=== PATIENT | female | born 1995 | race Caucasian/White ===

== ENCOUNTER 2024-03-22 11:33 | Emergency (ER) | payer OTHER ==
[~2024-03-22] VITALS: Ht 177.8 cm; Wt 106.6 kg
[2024-03-22 11:46] VITALS: BP 162/118
[2024-03-22] MEDS ORDERED: HYDROmorphone HCl/Pf 1MG SYR IM ONE ×2 (13:00→14:25)
[2024-03-22] MEDS ORDERED: Ketorolac Tromethamine 15mg Vial IM ONE (13:00)
[2024-03-22] MEDS ORDERED: OXYACE7.5T PO (14:42)
== END 2024-03-22 14:57 | disposition home or self-care (01) ==
LOC: ER 11:33
DX: M54.50 Low back pain, unspecified (principal); G89.29 Other chronic pain; Q79.60 Ehlers-Danlos syndrome, unspecified; Z88.8 Allergy status to other drugs, medicaments and biological substances
CPT/HCPCS: 72100; 96372; 99283-25; J1171; J1885

== ENCOUNTER 2024-05-02 06:27 | Day surgery (SDC) | payer OTHER ==
[~2024-05-02] VITALS: Ht 177.8 cm; Wt 114.6 kg
[2024-05-02] VITALS (11 sets, daily range): BP systolic 108–160; BP diastolic 77–113
[~2024-05-02 06:27] MED LIST: ALBU90OI INH; CeFAZolin Sodium 2,000 MG in NS 100 ML IV SCH; HYDPAM100 PO; IBUP800 PO; LOTREXONE4.5 MG PO; Lactated Ringer's 1,000 ML IV SCH; MELO7.5 PO; NEXPLANON68 MG SQ; Nortriptyline H50 MG PO; OXYACE7.5T PO; SPIR25 PO
[2024-05-02] MEDS ORDERED: propofoL 20 ML IV ONE ×2 (06:57→07:50)
[2024-05-02] MEDS ORDERED: FentaNYL Citrate 50 MCG/ML 2 ML Injection ONE ×3 (06:57→10:00)
[2024-05-02] MEDS ORDERED: Rocuronium Bromide 10 MG/ML 5ML Injection IV ONE ×2 (06:58→08:28)
[2024-05-02] MEDS ORDERED: Ondansetron HCl 2 MG / ML 2ML Vial ONE ×2 (06:58→10:09)
[2024-05-02] MEDS ORDERED: Dexamethasone Sod Phos 10 MG/ML 1ML VIAL ONE (06:58)
[2024-05-02] MEDS ORDERED: CeFAZolin Sodium 2,000 MG VIAL ONE (07:09)
[2024-05-02] MEDS ORDERED: Midazolam HCl 1MG / ML 2ML Vial IV ONE (07:15)
[2024-05-02] MEDS ORDERED: Lidocaine HCl 4% 5 ML SDA ONE (07:18)
[2024-05-02] MEDS ORDERED: Bupivacaine 0.5% HCl 5 MG/ML 30MLVIAL ONE (07:22)
[2024-05-02] MEDS ORDERED: Albuterol HFA200 ACT/6.7 GM INH INH PRN (07:35)
[2024-05-02] MEDS ORDERED: Sugammadex Sodium 200 MG/2ML SDV (100 MG/ML) ONE (07:59)
--- NOTE | 2024-05-02 09:31 | NUR ---
05/02/24 0931 Stone,[place] [facility] REMOVED END OF CASE, TOLERATED WELL, 250ML URINE
[2024-05-02] MEDS ORDERED: Ondansetron HCl 2 MG / ML 2ML Vial IV PRN (09:55)
[2024-05-02] MEDS ORDERED: OxyCODONE 5 mg/Acetamin 325 mg TABLET PO PRN (09:55)
[2024-05-02] MEDS ORDERED: HydrALAZINE HCl 20 MG / ML 1ML Vial ONE (09:55)
[2024-05-02] MEDS ORDERED: Metoclopramide HCl 5MG / ML 2ML Vial ONE (10:14)
[2024-05-02] MEDS ORDERED: Scopolamine Hydrobromide Patch TOP ONE (10:20)
--- NOTE | 2024-05-02 11:07 | NUR ---
DISCHARGE PT A&OX4/VSS/RA/EYES OPEN/TALKING/FOLLOWS COMMANDS/C&DBS, PAIN MANAGED WITH PERCOCET X1, RONNIE PO H20, ABD EXOFIN X3 CDI, DC INS PROVIDED. PT REP UNDERSTANDING THOSE INSTRUCTIONS. LEFT VIA WC WITH RN TO GO HOME WITH ALL PERSONAL POSSESSIONS, TO GO HOME WITH MARIBELL/PROFESSIONAL ATHLETE/MOM. IV DC'D.
== END 2024-05-02 23:00 | disposition home or self-care (01) ==
LOC: ORSCMMR 06:27 → ORD 11:30 → ORSCMMR 23:00
PROVIDERS: Obstetrics & Gynecology
PROC: 0UT7FZZ Resection of Bilateral Fallopian Tubes, Via Natural or Artificial Opening With Percutaneous Endoscopic Assistance (ICD-10-PCS; principal; 2024-05-02 07:30)
PROC: 8E0W4CZ Robotic Assisted Procedure of Trunk Region, Percutaneous Endoscopic Approach (ICD-10-PCS; principal; 2024-05-02 07:30)
PROC: 0U5F4ZZ Destruction of Cul-de-sac, Percutaneous Endoscopic Approach (ICD-10-PCS; principal; 2024-05-02 07:30)
DX: N92.1 Excessive and frequent menstruation with irregular cycle (principal); N94.6 Dysmenorrhea, unspecified; E28.2 Polycystic ovarian syndrome; Z30.2 Encounter for sterilization; N80.329 Endometriosis of the posterior cul-de-sac, unspecified depth; N80.352 Endometriosis of the left pelvic sidewall, unspecified depth; Q79.60 Ehlers-Danlos syndrome, unspecified; E66.9 Obesity, unspecified; Z68.36 Body mass index [BMI] 36.0-36.9, adult; J45.909 Unspecified asthma, uncomplicated; F43.10 Post-traumatic stress disorder, unspecified; F32.A Depression, unspecified; Z79.899 Other long term (current) drug therapy
CPT/HCPCS: 88302; 88305; A9270; J0360; J0690; J1100; J2003; J2250; J2405; J2704; J2765; J3010; J7120

== ENCOUNTER → 2025-02-15 | Outpatient (CLI) | payer OTHER ==
[~2025-02-15] MED LIST changes: -CeFAZolin Sodium 2,000 MG in NS 100 ML IV SCH; -Lactated Ringer's 1,000 ML IV SCH
[2025-02-15 19:39] LABS: Alanine Aminotransfer (ALT/SGP 18.0 U/L (12-78); Albumin, Blood 4.0 g/dL (3.4-5.0); Albumin/Globulin Ratio 0.9 (0.8-1.8); Anion Gap 5.0 mmol/L (3-11); Aspartate Aminotrans (AST/SGOT 7.0 U/L (12-37); Bilirubin, Total 0.4 mg/dL (0.1-1.0); Blood Urea Nitrogen 8.0 mg/dL (8-24); C-Reactive Protein, High Sens. 6.5 mg/L (0.000-3.000); CO2, Blood 27.0 mmol/L (21-32); Calcium, Blood 9.3 mg/dL (8.5-10.1); Chloride, Blood 107.0 mmol/L (98-108); Creatinine, Blood 0.73 mg/dL (0.40-1.00); Globulin, Blood 4.4 g/dL (2.2-4.0); Glucose, Blood 125.0 mg/dL (70-99); Potassium, Blood 3.8 mmol/L (3.5-5.5); Sodium, Blood 135.0 mmol/L (136-145); Total Protein, Blood 8.4 g/dL (6.4-8.2)
[2025-02-19 01:09] LABS: CYCLIC CITRULLINATED PEP,IGG/A 3 Units (0-19)
[2025-02-19 17:53] LABS: ANTINUCLEAR AB (ANA),HEP-2,IGG <1:80 (<1:80)
== END ==
LOC: LAB 17:23 → LAB SHORT 17:23
PROVIDERS: Family Medicine
DX: E28.2 Polycystic ovarian syndrome (principal); E55.9 Vitamin D deficiency, unspecified; M79.7 Fibromyalgia
CPT/HCPCS: 80053; 82306; 85651; 86039; 86141; 86200; 86430